=== PATIENT | female | born 1945 | race Hispanic/Latino ===

== ENCOUNTER 2018-01-22 15:04 | Observation (INO) | payer MEDICARE ==
[~2018-01-22] VITALS: Ht 152.4 cm; Wt 81.5 kg
[~2018-01-22 15:04] MED LIST: INSLAN SQ; METF-444 PO; MONT10TA24 PO; OMEP40CA37 PO; SIMV10TA6 PO
[2018-01-22 16:00] LABS: BASOPHILS % (AUTO) 0.8 % (0.0-5.0); EOSINOPHILS % (AUTO) 3.4 % (0.0-8.0); HEMATOCRIT 43.1 % (36-48); LYMPHOCYTES % (AUTO) 21.8 % (21.0-51.0); MEAN CORPUSCULAR HEMOGLOBIN 30.4 pg (27.0-33.0); MEAN CORPUSCULAR HGB CONC 33.4 g/dL (32.0-36.0); MEAN CORPUSCULAR VOLUME 90.9 fL (79-99); MONOCYTES % (AUTO) 5.8 % (3.0-13.0); NEUTROPHILS % (AUTO) 68.2 % (40.0-77.0); PLATELET COUNT (AUTO) 157 K/uL (130-400); RED BLOOD CELL COUNT(AUTO) 4.74 MIL/uL (4.00-5.50); WHITE BLOOD COUNT (AUTO) 9.6 K/uL (4.8-10.8)
[2018-01-22 16:22] LABS: ALBUMIN 4.1 g/dL (3.5-5.0); BILIRUBIN,DIRECT 0.1 mg/dL (0.0-0.3); BILIRUBIN,TOTAL 0.5 mg/dL (0.2-1.0); TOTAL PROTEIN, SERUM 8.3 g/dL (6.0-8.3)
[2018-01-22 16:27] LABS: CREATINE KINASE, TOTAL 204 U/L (21-232); MYOGLOBIN 28 ng/mL (10-92); TROPONIN I < 0.04 ng/mL (0.00-0.06)
[2018-01-22] MEDS ORDERED: GUAIFENESIN-DM 200/20 MG 10 ML PO PRN (16:45)
[2018-01-22] MEDS ORDERED: CLONIDINE HCL 0.1 MG TABLET PO PRN (16:45)
[2018-01-22] MEDS ORDERED: ONDANSETRON HCL 4 MG/2 ML VIAL IVP PRN (16:45)
[2018-01-22] MEDS ORDERED: ZOLPIDEM TARTRATE 5 MG TAB PO PRN (16:45)
[2018-01-22] MEDS ORDERED: SODIUM CHLORIDE 0.9% 10 ML VIAL IVP PRN (16:45)
[2018-01-22] MEDS ORDERED: IPRATROPIUM/ALBUTEROL SULFATE 3 ML SOLUTION IH PRN (16:45)
[2018-01-22 17:10] VITALS: BP 181/94
[2018-01-22 17:27] LABS: CREATININE 0.9 mg/dL (0.5-1.5); POTASSIUM 3.9 mmol/L (3.5-5.1)
[2018-01-22 17:32] LABS: ALBUMIN 3.9 g/dL (3.5-5.0); BILIRUBIN,TOTAL 0.4 mg/dL (0.2-1.0); TOTAL PROTEIN, SERUM 7.6 g/dL (6.0-8.3)
[2018-01-22 17:58] LABS: HEMATOCRIT 41.2 % (36-48); MEAN CORPUSCULAR HEMOGLOBIN 30.6 pg (27.0-33.0); MEAN CORPUSCULAR HGB CONC 33.6 g/dL (32.0-36.0); PLATELET COUNT (AUTO) 145 K/uL (130-400); RED BLOOD CELL COUNT(AUTO) 4.52 MIL/uL (4.00-5.50); WHITE BLOOD COUNT (AUTO) 9.5 K/uL (4.8-10.8)
[2018-01-22 18:12] LABS: ALBUMIN 3.9 g/dL (3.5-5.0); BILIRUBIN,DIRECT 0.1 mg/dL (0.0-0.3); BILIRUBIN,TOTAL 0.4 mg/dL (0.2-1.0); CREATININE 0.9 mg/dL (0.5-1.5); TOTAL PROTEIN, SERUM 7.5 g/dL (6.0-8.3)
[2018-01-22 20:00] VITALS: BP 143/78
[2018-01-22] MEDS: ACETAMINOPHEN 325 MG TAB PO PRN (23:59)
[2018-01-23] VITALS: BP 148/75
[2018-01-23 00:22] LABS: CREATINE KINASE, TOTAL 101 U/L (21-232); MYOGLOBIN 31 ng/mL (10-92); TROPONIN I < 0.04 ng/mL (0.00-0.06)
[2018-01-23 04:00] VITALS: BP 139/71
[2018-01-23] MEDS ORDERED: INSULIN LISPRO 100 UNIT/ML 3ML SQ SCH (07:30)
[2018-01-23 08:00] VITALS: BP 140/72
[2018-01-23 08:12] LABS: CREATINE KINASE, TOTAL 85 U/L (21-232); MYOGLOBIN 28 ng/mL (10-92); TROPONIN I < 0.04 ng/mL (0.00-0.06)
[2018-01-23] MEDS ORDERED: CLOPIDOGREL BISULFATE 75 MG TAB PO SCH (09:00)
[2018-01-23] MEDS ORDERED: REGADENOSON 0.4 MG/5 ML PF SYG IVP SCH (09:00)
[2018-01-23] MEDS ORDERED: ASPIRIN 81 MG EC TAB PO SCH (09:00)
[2018-01-23 11:00] VITALS: BP 142/67
[2018-01-23] MEDS: ACETAMINOPHEN 325 MG TAB PO PRN (11:05)
== END 2018-01-23 16:03 | disposition home or self-care (01) ==
LOC: EDH 15:04 → EDHIP 15:05 → 3CH 17:03
PROVIDERS: ADMIT Internal Medicine; ATTEND Internal Medicine
DX: I24.9 Acute ischemic heart disease, unspecified (principal); E11.9 Type 2 diabetes mellitus without complications; I10 Essential (primary) hypertension; Z90.710 Acquired absence of both cervix and uterus
CPT/HCPCS: 36415 ×2; 78452; 80053; 80076 ×2; 82550 ×3; 82948 ×3; 83874 ×3; 84484 ×3; 85025; 85027; 93017; 94664; 99285; A9500 ×2; G0378 ×25; J2785; 80048; 96374

== ENCOUNTER → 2018-09-28 | Outpatient (CLI) | payer MEDICARE | END | disposition home or self-care (01) | LOC: RAH 14:34 | PROVIDERS: ATTEND Orthopaedic Surgery | DX: S83.281A Other tear of lateral meniscus, current injury, right knee, initial encounter (principal); M17.11 Unilateral primary osteoarthritis, right knee; M25.761 Osteophyte, right knee; M25.461 Effusion, right knee; M94.261 Chondromalacia, right knee; X58.XXXA Exposure to other specified factors, initial encounter; Y93.89 Activity, other specified; Y92.89 Other specified places as the place of occurrence of the external cause; Y99.8 Other external cause status | CPT/HCPCS: 73721 ==

== ENCOUNTER 2018-12-17 10:00 | Inpatient (IN) | payer MEDICARE ==
[~2018-12-17] VITALS: Ht 152.4 cm; Wt 84.6 kg
[~2018-12-17 10:00] MED LIST changes: -INSLAN SQ; -METF-444 PO; -MONT10TA24 PO; +OMEP40CA13 PO; -OMEP40CA37 PO; -SIMV10TA6 PO; +SIMV10TA97 PO
[2019-01-14 12:24] LABS: APPEARANCE,URINE Clear (CLEAR); BILIRUBIN,URINE Negative (NEGATIVE); COLOR,URINE Yellow (YELLOW); GLUCOSE, URINE (UA) TRACE mg/dL (NEGATIVE); KETONES,URINE Negative (NEGATIVE); LEUKOCYTE ESTERASE ,URINE Small (NEGATIVE); NITRATE,URINE Negative (NEGATIVE); OCCULT BLOOD,URINE Negative (NEGATIVE); PROTEIN,URINE POS 2+ mg/dL (NEGATIVE)
[2019-01-14 12:40] LABS: BACTERIA,URINE Few /HPF (None Seen); RBC,URINE 0-1 /HPF (0-1); SQUAMOUS EPITHELIAL CELL,UR Few /HPF (0-2)
[2019-01-14 14:18] VITALS: BP 132/74
[2019-01-14] MEDS ORDERED: AA8/1CAP3 PO (14:40)
[2019-01-14] MEDS ORDERED: SERT50TA12 PO (14:40)
[2019-01-14] MEDS ORDERED: ACET1TAB25 PO (14:40)
[2019-01-14] MEDS ORDERED: OLME20TA22 PO (14:40)
[2019-01-14] MEDS ORDERED: INSLAN SQ (14:41)
--- NOTE | 2019-01-14 18:04 | NUR ---
UA INFORMED DR. RYAN OF ABNORMAL UA. ORDERS RECEIVED TO GIVE GENTAMICIN 240MG IV ON AM OF ARRIVAL AND SEND URINE FOR CULTURE.
[2019-01-17] VITALS (26 sets, daily range): BP systolic 86–125; BP diastolic 48–64
[2019-01-17] MEDS: CEFAZOLIN SODIUM 1 GM VIAL IVP SCH ×3 (06:00→18:34)
[2019-01-17] MEDS ORDERED: GENTAMICIN SULFATE 240 MG in SODIUM CHLORIDE 0.9% 100 ML IV SCH (07:30)
[2019-01-17] MEDS ORDERED: SODIUM CHLORIDE 0.9% 1000ML 1,000 ML IV ONE (08:03)
[2019-01-17] MEDS ORDERED: ACETAMINOPHEN EXTRA STRENGTH 500 MG TABLET ONE (08:28)
[2019-01-17] MEDS ORDERED: OXYCODONE HCL 10 MG TAB.SR.12H PO ONE (08:29)
[2019-01-17] MEDS ORDERED: CELECOXIB 200 MG CAP ONE (08:29)
[2019-01-17] MEDS ORDERED: GABA-531 PO (08:44)
[2019-01-17] MEDS ORDERED: ACET1TAB12 PO (08:45)
[2019-01-17] MEDS ORDERED: CEFAZOLIN SODIUM 1 GM VIAL ONE (08:53)
[2019-01-17] MEDS ORDERED: LIDOCAINE PF 2% 5ML ABBOJECT ONE (10:07)
[2019-01-17] MEDS ORDERED: ONDANSETRON HCL 4 MG/2 ML VIAL ONE (10:07)
[2019-01-17] MEDS ORDERED: ROCURONIUM 10MG/1ML SYR 10 MG/ML ML ONE ×2 (10:08→11:52)
[2019-01-17] MEDS ORDERED: PROPOFOL 10 MG/ML 20ML VIAL IV ONE (10:08)
[2019-01-17] MEDS ORDERED: FENTANYL CITRATE PF 50 MCG/1 ML 2ML VIAL ONE (10:08)
[2019-01-17] MEDS ORDERED: MIDAZOLAM HCL 1 MG/ML 2ML VIAL ONE (10:12)
[2019-01-17] MEDS ORDERED: KETAMINE 50MG/ML SYRINGE 50 MG/ML DISP.SYRIN IV ONE (10:14)
[2019-01-17] MEDS ORDERED: ROPIVACAINE 0.5% 5MG/ML 30ML IJ ONE (10:14)
[2019-01-17] MEDS ORDERED: DEXAMETHASONE SOD PHOSPHATE 10MG/ML 1ML VIAL ONE (10:15)
[2019-01-17] MEDS: TRANEXAMIC ACID 1000MG/10ML IV ONE ×2 (11:10→13:55)
[2019-01-17] MEDS ORDERED: TEMAZEPAM 15 MG CAPSULE PO PRN (13:30)
[2019-01-17] MEDS: SODIUM CHLORIDE 0.9% 1000ML 1,000 ML IV SCH ×2 (13:30→23:49)
[2019-01-17] MEDS ORDERED: FERROUS FUMARATE 324 MG TABLET PO PRN (13:30)
[2019-01-17] MEDS: ACETAMINOPHEN EXTRA STRENGTH 500 MG TABLET PO SCH ×2 (13:30→20:29)
[2019-01-17] MEDS ORDERED: DiphenhydrAMINE HCL 50 MG/ML VIAL IVP PRN (13:30)
[2019-01-17] MEDS ORDERED: ONDANSETRON HCL 4 MG/2 ML VIAL IVP PRN (13:30)
[2019-01-17] MEDS ORDERED: KETOROLAC TROMETHAMINE 15MG/ML IV PRN (13:30)
[2019-01-17] MEDS ORDERED: TRAMADOL HCL 50 MG TABLET PO PRN (13:30)
[2019-01-17] MEDS ORDERED: IPRATROPIUM/ALBUTEROL SULFATE 3 ML SOLUTION IH ONE ×2 (13:56→14:38)
[2019-01-17] MEDS: INSULIN HUMULIN R 100 UNIT/ML 3ML SQ SCH ×2 (16:30→21:00)
[2019-01-17] MEDS: OXYCODONE HCL 5 MG TAB PO PRN ×2 (16:35→20:23)
[2019-01-17] MEDS: CELECOXIB 200 MG CAP PO SCH (20:29)
[2019-01-17] MEDS: ASPIRIN 81MG TAB.CHEW PO SCH (20:29)
[2019-01-17] MEDS: INSULIN GLARGINE 100 UNITS/ML 10 ML VIAL SQ SCH (21:45)
[2019-01-17] MEDS: GABAPENTIN 300 MG CAPSULE PO SCH (21:46)
--- NOTE | 2019-01-17 23:29 | NUR ---
LOW BLOOD PRESSURE PATIENT BLOOD PRESSURE AT 86/50. DR RYAN INFORMED OF PATIENT STATUS ORDERS FOR NS BOLUS AND AM LABS GIVEN AND CARRIED OUT.
[2019-01-17] MEDS ORDERED: SODIUM CHLORIDE 0.9% 500ML 500 ML IV SCH (23:30)
[2019-01-18] VITALS: BP 94/50
[2019-01-18] MEDS: OXYCODONE HCL 5 MG TAB PO PRN ×3 (01:28→19:50)
[2019-01-18] MEDS: CEFAZOLIN SODIUM 1 GM VIAL IVP SCH (03:09)
[2019-01-18 04:03] VITALS: BP 92/56
[2019-01-18] MEDS: ACETAMINOPHEN EXTRA STRENGTH 500 MG TABLET PO SCH ×3 (04:55→19:50)
[2019-01-18 05:11] LABS: HEMATOCRIT 32.8 % (36-48); MEAN CORPUSCULAR HEMOGLOBIN 31.4 pg (27.0-33.0); MEAN CORPUSCULAR HGB CONC 33.8 g/dL (32.0-36.0); MEAN CORPUSCULAR VOLUME 92.8 fL (79-99); PLATELET COUNT (AUTO) 150 K/uL (130-400); RED BLOOD CELL COUNT(AUTO) 3.54 MIL/uL (4.00-5.50); RED CELL DISTRIBUTION WIDTH 13.4 % (11.0-15.5); WHITE BLOOD COUNT (AUTO) 9.8 K/uL (4.8-10.8)
[2019-01-18] MEDS: INSULIN HUMULIN R 100 UNIT/ML 3ML SQ SCH ×4 (05:33→21:20)
[2019-01-18 08:40] VITALS: BP 105/54
[2019-01-18] MEDS: LOSARTAN 100 MG TABLET PO SCH (09:00)
--- NOTE | 2019-01-18 09:00 | NUR ---
INITIAL AND REFERRAL MET W PT S/P KAMILAH, ANNA CARDONA REFERRAL LIVES W SON, SON WORKS ALL DAY; WAS PREVIOUSLY INDP, NO DME, HOME SAFE AND ACCESSIBLE; HAS RAMP; PROVIDER SERVICE THROUGH [facility] 20+ HR/WK VU SIGNED FOR ANNA CARDONA AND SHAYNA, WILL NEED WKR ON DC FOMR ANNA CARDONA Addendum: 01/19/19 at 1849 by SIXTO GONZALES RN CM Amended: Links added.
[2019-01-18] MEDS: POLYETHYLENE GLYCOL 3350 17 GM POWD.PACK PO SCH (09:23)
[2019-01-18] MEDS: SODIUM CHLORIDE 0.9% 1000ML 1,000 ML IV SCH (09:24)
[2019-01-18] MEDS: FAMOTIDINE 20MG TAB 20 MG TAB PO SCH (09:24)
[2019-01-18] MEDS: ASPIRIN 81MG TAB.CHEW PO SCH ×2 (09:24→19:50)
[2019-01-18] MEDS: NITROFURANTOIN MONOHYD/M-CRYST 100 MG CAPSULE PO SCH ×2 (09:24→19:50)
[2019-01-18] MEDS: SERTRALINE HCL 50 MG TABLET PO SCH (09:24)
[2019-01-18] MEDS: CELECOXIB 200 MG CAP PO SCH ×2 (09:24→19:50)
[2019-01-18] MEDS: INSULIN GLARGINE 100 UNITS/ML 10 ML VIAL SQ SCH ×2 (09:37→21:19)
[2019-01-18 11:35] VITALS: BP 108/56
[2019-01-18 16:04] VITALS: BP 116/60
[2019-01-18] MEDS ORDERED: ASPI-1005 PO (17:52)
[2019-01-18] MEDS ORDERED: NITR100C4 PO (17:52)
[2019-01-18] MEDS ORDERED: HYDR-4457 PO (17:52)
[2019-01-18] MEDS: GABAPENTIN 300 MG CAPSULE PO SCH (19:50)
[2019-01-18 20:03] VITALS: BP 105/57
[2019-01-19 00:03] VITALS: BP 103/59
[2019-01-19] MEDS: OXYCODONE HCL 5 MG TAB PO PRN ×2 (00:54→04:45)
[2019-01-19 04:03] VITALS: BP 97/54
[2019-01-19] MEDS: ACETAMINOPHEN EXTRA STRENGTH 500 MG TABLET PO SCH ×3 (05:13→20:48)
[2019-01-19] MEDS: INSULIN HUMULIN R 100 UNIT/ML 3ML SQ SCH ×4 (06:07→21:00)
[2019-01-19 08:04] VITALS: BP 115/62
--- NOTE | 2019-01-19 09:00 | NUR ---
[facility] Addendum: 01/19/19 at 1852 by SIXTO GONZALES RN CM Amended: Links added.
[2019-01-19] MEDS: INSULIN GLARGINE 100 UNITS/ML 10 ML VIAL SQ SCH ×2 (11:16→21:06)
[2019-01-19] MEDS: NITROFURANTOIN MONOHYD/M-CRYST 100 MG CAPSULE PO SCH ×2 (11:20→20:47)
[2019-01-19] MEDS: CELECOXIB 200 MG CAP PO SCH ×2 (11:20→20:47)
[2019-01-19] MEDS: SERTRALINE HCL 50 MG TABLET PO SCH (11:21)
[2019-01-19] MEDS: LOSARTAN 100 MG TABLET PO SCH (11:21)
[2019-01-19] MEDS: POLYETHYLENE GLYCOL 3350 17 GM POWD.PACK PO SCH (11:22)
[2019-01-19] MEDS: ASPIRIN 81MG TAB.CHEW PO SCH (11:22)
[2019-01-19] MEDS: FAMOTIDINE 20MG TAB 20 MG TAB PO SCH (11:24)
[2019-01-19 11:27] VITALS: BP 115/72
[2019-01-19 16:03] VITALS: BP 129/57
--- NOTE | 2019-01-19 18:15 | NUR ---
PATIENT S/S PATIENT REPORTS FEELING SHORT OF BREATH WHEN WALKING FROM THE BATHROOM. OXYGEN SATURATION NOTED TO BE 85% ON ROOM AIR. INSTRUCTED PATIENT TO TAKE DEEP BREATHS, PLACED PATIENT ON 02 AT 2L PER NASAL CANNULA. OXYGEN SATURATION DID IMPROVE TO 94% ON 02 AT 2L PER NC. BILATERAL LUNG SOUNDS CLEAR TO AUSCULTATION, NO CHEST PAIN REPORTED. PATIENT DOES REPORT USING INCENTIVE SPIROMETER EXERCISES EVERY HOUR. CALLED DR. RYAN TO REPORT FINDINGS THESE LOW OXYGEN SATURATIONS APPEAR TO BE A NEW FINDING.
[2019-01-19 19:36] LABS: CREATININE 1.5 mg/dL (0.5-1.5); POTASSIUM 4.4 mmol/L (3.5-5.1)
[2019-01-19 20:00] VITALS: BP 119/64
[2019-01-19] MEDS: APIXABAN 2.5 MG TABLET PO SCH (20:47)
[2019-01-19] MEDS: GABAPENTIN 300 MG CAPSULE PO SCH (20:48)
[2019-01-20] VITALS: BP_SYST 107; BP_SYST 136; BP_DIAS 52; BP_DIAS 60
[2019-01-20 04:00] VITALS: BP 107/52
[2019-01-20] MEDS: ACETAMINOPHEN EXTRA STRENGTH 500 MG TABLET PO SCH ×3 (05:38→20:09)
[2019-01-20] MEDS: INSULIN HUMULIN R 100 UNIT/ML 3ML SQ SCH ×4 (07:30→20:15)
[2019-01-20 08:05] VITALS: BP 95/58
[2019-01-20] MEDS: IPRATROPIUM/ALBUTEROL SULFATE 3 ML SOLUTION IH SCH ×4 (08:49→23:40)
[2019-01-20] MEDS: INSULIN GLARGINE 100 UNITS/ML 10 ML VIAL SQ SCH ×2 (09:55→20:14)
[2019-01-20] MEDS: OXYCODONE HCL 5 MG TAB PO PRN (10:03)
[2019-01-20] MEDS: POLYETHYLENE GLYCOL 3350 17 GM POWD.PACK PO SCH (10:04)
[2019-01-20] MEDS: CELECOXIB 200 MG CAP PO SCH ×2 (10:05→20:08)
[2019-01-20] MEDS: FAMOTIDINE 20MG TAB 20 MG TAB PO SCH (10:05)
[2019-01-20] MEDS: SERTRALINE HCL 50 MG TABLET PO SCH (10:05)
[2019-01-20] MEDS: LOSARTAN 100 MG TABLET PO SCH (10:05)
[2019-01-20] MEDS: NITROFURANTOIN MONOHYD/M-CRYST 100 MG CAPSULE PO SCH ×2 (10:05→20:08)
[2019-01-20] MEDS: APIXABAN 2.5 MG TABLET PO SCH ×2 (10:05→20:08)
[2019-01-20 11:00] VITALS: BP 114/63
--- NOTE | 2019-01-20 12:05 | NUR ---
ELEVATED BLOOD GLUCOSE OBTAINED FINGERSTICK BLOOD GLUCOSE RESULT 420, ORDERED STAT LAB RECHECK. ADMINISTERED 16 UNITS PER SLIDING SCALE PROTOCOL. SPOKE TO PATIENT REGARDING DIABETIC DIET COMPLIANCE IN HOSPITAL BECAUSE I SAW A SOFT DRINK AT PATIENT BEDSIDE. PATIENT STATES "I HAVE NOT DRANK THAT, IT HAS BEEN THERE SINCE LAST NIGHT." I EDUCATED PATIENT ON IMPORTANCE OF MAINTAINING DIABETIC DIET AND PATIENT TOLD ME SHE HAS NOT BEEN EATING ANY OUTSIDE SNACKS OR FOOD. LAB GLUCOSE RESULT WAS 450. CALLED DR. RYAN TO REPORT BLOOD GLUCOSE SUGAR RESULTS AND INTERVENTIONS. MD ORDERED TO PLACE PATIENT ON SLIDING SCALE 2 AND TO GIVE 4 UNITS REGULAR INSULIN NOW TO EQUAL TOTAL DOSE OF REGULAR INSULIN 20 UNITS SQ. WILL CONTINUE TO MONITOR.
[2019-01-20] MEDS ORDERED: GLUCAGON 1MG KIT 1 MG ML IM PRN (12:15)
[2019-01-20] MEDS ORDERED: DEXTROSE 50%-WATER 50 ML DISP.SYRIN IV PRN (12:15)
[2019-01-20] MEDS ORDERED: INSULIN HUMULIN R 100 UNIT/ML 3ML SQ SCH (12:15)
[2019-01-20] MEDS ORDERED: INSULIN HUMULIN R 100 UNIT/ML 3ML ONE (12:16)
[2019-01-20] MEDS ORDERED: BISACODYL 10 MG SUPP.RECT RC PRN (13:30)
[2019-01-20 16:00] VITALS: BP 129/61
[2019-01-20 20:00] VITALS: BP 140/75
[2019-01-20] MEDS: GABAPENTIN 300 MG CAPSULE PO SCH (20:08)
[2019-01-21] VITALS: BP 123/65
[2019-01-21 04:00] VITALS: BP 123/68
[2019-01-21] MEDS: ACETAMINOPHEN EXTRA STRENGTH 500 MG TABLET PO SCH ×2 (06:09→12:43)
[2019-01-21] MEDS: IPRATROPIUM/ALBUTEROL SULFATE 3 ML SOLUTION IH SCH ×2 (06:32→11:39)
[2019-01-21] MEDS: INSULIN HUMULIN R 100 UNIT/ML 3ML SQ SCH ×2 (07:30→12:44)
[2019-01-21 08:00] VITALS: BP 120/71
[2019-01-21] MEDS: INSULIN GLARGINE 100 UNITS/ML 10 ML VIAL SQ SCH (08:27)
[2019-01-21] MEDS: OXYCODONE HCL 5 MG TAB PO PRN (08:31)
[2019-01-21] MEDS: POLYETHYLENE GLYCOL 3350 17 GM POWD.PACK PO SCH (08:32)
[2019-01-21] MEDS: SERTRALINE HCL 50 MG TABLET PO SCH (08:33)
[2019-01-21] MEDS: FAMOTIDINE 20MG TAB 20 MG TAB PO SCH (08:33)
[2019-01-21] MEDS: NITROFURANTOIN MONOHYD/M-CRYST 100 MG CAPSULE PO SCH (08:33)
[2019-01-21] MEDS: CELECOXIB 200 MG CAP PO SCH (08:33)
[2019-01-21] MEDS: APIXABAN 2.5 MG TABLET PO SCH (08:33)
[2019-01-21] MEDS: LOSARTAN 100 MG TABLET PO SCH (08:33)
--- NOTE | 2019-01-21 10:00 | NUR ---
LATE DISCHARGE LBM ON 01/16/19. SUPPOSITORY GIVEN PER DR. RYAN ORDERS. MIRALAX AND PRUNE JUICE GIVEN WELL. BOWEL SOUNDS AUSCULTATED ON ALL QUADRANTS, PATIENT REPORTS PASSING GAS. DR. RYAN MADE AWARE, PENDING BM PRIOR TO TRANSFER.
[2019-01-21 11:49] VITALS: BP 128/69
--- NOTE | 2019-01-21 14:07 | NUR ---
RD NOTIFICATION DX: OSTEOARTHRITIS OF RIGHT KNEE. HX: DM, HTN. DIET: 60GMCCD. PO INTAKE 100% AND HAS GOOD APPETITE PER PT. PT CLAIMS TO BE COMPLIANT WITH DIABETIC DIET AND MEDICATIONS. PT IS TOLERATING DIET WELL. NO NAUSEA, VOMITING OR DIARRHEA. PT STATED SHE HAS NOT HAD A BM SINCE THURSDAY, AND HAS A HISTORY OF CONSTIPATION. RD PROVIDED DIABETES DIET AND NUTRITION EDUCATION. MATERIAL PROVIDED. PT VERBALIZED UNDERSTANDING. RD RECOMMENDS CONTINUE CURRENT DIET. RD PROVIDED DIABETES DIET AND NUTRITION EDUCATION. RD WILL CONTINUE TO MONITOR AND FOLLOW UP NEEDED. THANK YOU. Addendum: 01/21/19 at [address] Amended: Links added.
--- NOTE | 2019-01-21 14:08 | NUR ---
DIET EDUCATION AYAAN PROVIDED DIABETES DIET AND NUTRITION EDUCATION. MATERIAL PROVIDED. PT VERBALIZED UNDERSTANDING. Addendum: 01/21/19 at [address] Amended: Links added.
--- NOTE | 2019-01-21 16:50 | NUR ---
DISCHARGE DISCHARGE TEACHING DONE WITH PATIENT USING TEACHBACK METHOD, VERBALIZED UNDERSTANDING. NO NOTED SOB OR DISTRESS. PT AWARE OF NEED TO ATTEND DR. RYAN APPOINTMENT. INCISION CARE TEACHING DONE WITH PATIENT USING TEACHBACK METHOD, VERBALIZED UNDERSTANDING. DRESSING TO RIGHT KNEE CHANGED PER DR. RYAN ORDERS, INCISION IS DRY AND INTACT, GAUZE AND TAPE SECURING INCISION. NEW MEDICATION ADMINISTRATION TEACHING DONE WITH PATIENT, VERBALIZED UNDERSTANDING. IV REMOVED, CATH TIP INTACT. REPORT CALLED TO ANNA CARDONA TELEVISION REPAIRER AT BEDSIDE TO TRANSFER PATIENT.
== END 2019-01-21 17:14 | DRG 470 ==
LOC: DAHIP 01-17 07:08 → 4AH 01-17 13:36
PROVIDERS: ADMIT Orthopaedic Surgery; ATTEND Orthopaedic Surgery
PROC: 0SRC0J9 Replacement of Right Knee Joint with Synthetic Substitute, Cemented, Open Approach (ICD-10-PCS; principal; 2019-01-17 10:55)
PROC: 3E0T3BZ Introduction of Anesthetic Agent into Peripheral Nerves and Plexi, Percutaneous Approach (ICD-10-PCS; 2019-01-17 10:55)
DX: M17.11 Unilateral primary osteoarthritis, right knee (principal); J98.11 Atelectasis; E11.9 Type 2 diabetes mellitus without complications; I10 Essential (primary) hypertension; E78.5 Hyperlipidemia, unspecified; E78.00 Pure hypercholesterolemia, unspecified; M06.9 Rheumatoid arthritis, unspecified; M23.91 Unspecified internal derangement of right knee; G89.29 Other chronic pain; Z79.4 Long term (current) use of insulin; Z87.891 Personal history of nicotine dependence; Z90.710 Acquired absence of both cervix and uterus
CPT/HCPCS: 36415; 71250; 80048; 81001; 82947; 82948; 85027; 85378; 87077; 87088; 87186; 87641; 88304; 88311; 93005; 93970; 94640; 96365; 97039; G0378; J0690; J1100; J1580; J1815; J1885; J2001; J2250; J2405; J2704; J2795; J3010; J3490; J7030; J7040

== ENCOUNTER 2019-04-25 12:55 | Emergency (ER) | payer MEDICARE ==
[~2019-04-25 12:55] MED LIST changes: +ASPI-1005 PO; +GABA-531 PO; +INSLAN SQ; +NITR100C4 PO; +OLME20TA22 PO; -OMEP40CA13 PO; +SERT50TA12 PO; -SIMV10TA97 PO
[2019-04-25] MEDS ORDERED: CYCLOBENZAPRINE HCL 10 MG TABLET ONE (14:32)
[2019-04-25] MEDS ORDERED: LIDOCAINE 5% TOPICAL PATCH TP ONE (14:32)
[2019-04-25] MEDS ORDERED: KETOROLAC TROMETHAMINE 30MG/ML ONE (14:32)
== END 2019-04-25 15:57 | disposition home or self-care (01) ==
LOC: EDH 12:55
DX: M54.41 Lumbago with sciatica, right side (principal); R50.9 Fever, unspecified; E11.9 Type 2 diabetes mellitus without complications; I10 Essential (primary) hypertension; Z87.891 Personal history of nicotine dependence
CPT/HCPCS: 96372; 99283; J1885

== ENCOUNTER 2020-02-01 09:35 | Emergency (ER) | payer MEDICARE ==
[2020-02-01] MEDS ORDERED: SODIUM CHLORIDE 0.9% 1000ML 1,000 ML IV ONE (09:36)
[2020-02-01] MEDS ORDERED: IBUPROFEN 600 MG TABLET ONE (10:32)
[2020-02-01 10:57] LABS: CREATININE 1.3 mg/dL (0.5-1.5); POTASSIUM 4.9 mmol/L (3.5-5.1)
[2020-02-01] MEDS ORDERED: INSULIN HUMULIN R 100 UNIT/ML 3ML ONE (11:38)
== END 2020-02-01 12:38 | disposition home or self-care (01) ==
LOC: EDH 09:35
DX: R51.9 Headache, unspecified (principal); E08.65 Diabetes mellitus due to underlying condition with hyperglycemia; I10 Essential (primary) hypertension; E78.00 Pure hypercholesterolemia, unspecified
CPT/HCPCS: 36415; 80048; 82948; 96361; 96374; 99283; J1815; J7030

== ENCOUNTER 2020-08-19 13:43 | Emergency (ER) | payer MEDICARE ==
[~2020-08-19 13:43] MED LIST changes: +SERT-439 PO; -SERT50TA12 PO
[2020-08-19 14:23] LABS: APPEARANCE,URINE Clear (CLEAR); BILIRUBIN,URINE Negative (NEGATIVE); COLOR,URINE Yellow (YELLOW); GLUCOSE, URINE (UA) Negative (NEGATIVE); KETONES,URINE Trace mg/dL (NEGATIVE); LEUKOCYTE ESTERASE ,URINE Small (NEGATIVE); NITRATE,URINE Negative (NEGATIVE); OCCULT BLOOD,URINE Negative (NEGATIVE); PROTEIN,URINE POS 1+ mg/dL (NEGATIVE)
[2020-08-19 14:29] LABS: BASOPHILS % (AUTO) 0.8 % (0.0-5.0); EOSINOPHILS % (AUTO) 4.9 % (0.0-8.0); HEMATOCRIT 43.2 % (36-48); LYMPHOCYTES % (AUTO) 26.4 % (21.0-51.0); MEAN CORPUSCULAR HEMOGLOBIN 29.2 pg (27.0-33.0); MEAN CORPUSCULAR HGB CONC 32.4 g/dL (32.0-36.0); MONOCYTES % (AUTO) 6.3 % (3.0-13.0); NEUTROPHILS % (AUTO) 61.1 % (40.0-77.0); PLATELET COUNT (AUTO) 188 K/uL (130-400); RED CELL DISTRIBUTION WIDTH 12.8 % (11.0-15.5); WHITE BLOOD COUNT (AUTO) 8.8 K/uL (4.8-10.8)
[2020-08-19 14:40] LABS: ABG BASE EXCESS -9.9 mmol/L (-2.0-3.0); ABG HCO3 16.4 mmol/L (21.0-28.0); ABG OXYGEN SATURATION 89.8 % (95.0-99.0); ABG PCO2 38 mmHg (32-45)
[2020-08-19 14:48] LABS: CREATININE 1.6 mg/dL (0.5-1.5); POTASSIUM 5.4 mmol/L (3.5-5.1)
[2020-08-19 14:49] LABS: INR 0.95 (0.85-1.15); PROTHROMBIN TIME 10.4 SEC (9.6-11.6)
[2020-08-19 14:50] LABS: BACTERIA,URINE Rare /HPF (None Seen); RBC,URINE 0-1 /HPF (0-1); SQUAMOUS EPITHELIAL CELL,UR Few /HPF (0-2)
[2020-08-19 14:51] LABS: PARTIAL THROMBOPLASTIN TIME 25.6 SEC (26.3-35.5)
[2020-08-19 14:53] LABS: ALBUMIN 3.9 g/dL (3.5-5.0); BILIRUBIN,TOTAL 0.3 mg/dL (0.2-1.0); TOTAL PROTEIN, SERUM 7.8 g/dL (6.0-8.3)
[2020-08-19] MEDS ORDERED: CEFTRIAXONE SODIUM 1 GM ONE (15:30)
[2020-08-19] MEDS ORDERED: SODIUM CHLORIDE 0.9% 100 ML IV ONE (15:31)
[2020-08-19] MEDS ORDERED: SODIUM CHLORIDE 0.9% 500ML 500 ML IV ONE (15:31)
== END 2020-08-19 20:03 | disposition home or self-care (01) ==
LOC: EDH 13:43
DX: J20.9 Acute bronchitis, unspecified (principal); E11.9 Type 2 diabetes mellitus without complications; E78.00 Pure hypercholesterolemia, unspecified; I10 Essential (primary) hypertension
CPT/HCPCS: 36415; 36600; 71045; 80053; 81001; 82803; 84484; 85025; 85610; 85730; 96365; 96366; 99284; J0696; J7040

== ENCOUNTER 2021-03-16 11:09 | Emergency (ER) | payer MEDICARE ==
[~2021-03-16] VITALS: Ht 152.4 cm; Wt 88.0 kg
[2021-03-16 11:45] LABS: APPEARANCE,URINE Clear (CLEAR); BILIRUBIN,URINE Negative (NEGATIVE); COLOR,URINE Yellow (YELLOW); GLUCOSE, URINE (UA) Negative (NEGATIVE); KETONES,URINE Negative (NEGATIVE); LEUKOCYTE ESTERASE ,URINE Small (NEGATIVE); NITRATE,URINE Negative (NEGATIVE); OCCULT BLOOD,URINE Negative (NEGATIVE); PH,URINE 5.5 (5.0-8.0); PROTEIN,URINE POS 2+ mg/dL (NEGATIVE)
[2021-03-16 11:50] LABS: BACTERIA,URINE Rare /HPF (None Seen); RBC,URINE 0-1 /HPF (0-1); SQUAMOUS EPITHELIAL CELL,UR Few /HPF (0-2); WBC,URINE 0-1 /HPF (0-1)
[2021-03-16 11:59] LABS: BASOPHILS % (AUTO) 0.3 % (0.0-5.0); EOSINOPHILS % (AUTO) 0.3 % (0.0-8.0); HEMATOCRIT 40.6 % (36-48); LYMPHOCYTES % (AUTO) 7.4 % (21.0-51.0); MEAN CORPUSCULAR HEMOGLOBIN 28.9 pg (27.0-33.0); MEAN CORPUSCULAR HGB CONC 32.5 g/dL (32.0-36.0); MONOCYTES % (AUTO) 3.3 % (3.0-13.0); NEUTROPHILS % (AUTO) 88.4 % (40.0-77.0); PLATELET COUNT (AUTO) 176 K/uL (130-400); RED BLOOD CELL COUNT(AUTO) 4.56 MIL/uL (4.00-5.50); RED CELL DISTRIBUTION WIDTH 12.3 % (11.0-15.5); WHITE BLOOD COUNT (AUTO) 8.7 K/uL (4.8-10.8)
[2021-03-16 12:12] LABS: CREATININE 1.3 mg/dL (0.5-1.5); POTASSIUM 4.1 mmol/L (3.5-5.1)
[2021-03-16 12:17] LABS: ALBUMIN 4.1 g/dL (3.5-5.0); BILIRUBIN,TOTAL 0.6 mg/dL (0.2-1.0)
[2021-03-16] MEDS ORDERED: 0.9%NACL 1000ML 1,000 ML IV ONE (13:00)
[2021-03-16] MEDS ORDERED: ONDANSETRON 4MG INJ IVP ONE (13:00)
[2021-03-16] MEDS ORDERED: ONDA4TAB10 PO (15:53)
[2021-03-16] MEDS ORDERED: CEPH500B PO (15:53)
[2021-03-16] MEDS ORDERED: OMEP10CA5 PO (15:53)
[2021-03-16] MEDS ORDERED: CEFTRIAXONE 1G VIAL IVP ONE (16:00)
[2021-03-16 16:32] VITALS: BP 126/62
== END 2021-03-16 16:36 | disposition home or self-care (01) ==
LOC: EDH 11:15
DX: E86.0 Dehydration (principal); L03.115 Cellulitis of right lower limb; R11.2 Nausea with vomiting, unspecified; E11.9 Type 2 diabetes mellitus without complications; E78.00 Pure hypercholesterolemia, unspecified; I11.9 Hypertensive heart disease without heart failure; Z79.4 Long term (current) use of insulin; Z79.82 Long term (current) use of aspirin; Z79.899 Other long term (current) drug therapy
CPT/HCPCS: 36415; 71045; 80053; 81001; 82550; 83690; 84484; 85025; 93005; 96361; 96374; 96375; 99285; J0696; J2405; J7030

== ENCOUNTER 2021-03-20 04:12 | Emergency (ER) | payer MEDICARE ==
[~2021-03-20] VITALS: Ht 152.4 cm; Wt 88.0 kg
[~2021-03-20 04:12] MED LIST changes: +CEPH500B PO; +OMEP10CA5 PO; +ONDA4TAB10 PO
[2021-03-20 04:35] VITALS: BP 104/52
[2021-03-20] MEDS ORDERED: LACTULOSE 20 GM/30 ML UDCUP PO ONE (05:00)
[2021-03-20] MEDS ORDERED: LACT10SO5 PO (05:30)
== END 2021-03-20 06:27 | disposition home or self-care (01) ==
LOC: EDH 04:12
DX: K59.00 Constipation, unspecified (principal); E11.9 Type 2 diabetes mellitus without complications; E78.00 Pure hypercholesterolemia, unspecified; I10 Essential (primary) hypertension; Z79.4 Long term (current) use of insulin; Z79.82 Long term (current) use of aspirin; Z79.899 Other long term (current) drug therapy

== ENCOUNTER → 2021-09-20 | Outpatient (CLI) | payer MEDICARE ==
[~2021-09-20] MED LIST changes: -ASPI-1005 PO; +ATOR20TA65 PO; -CEPH500B PO; +DOCU100C33 PO; -GABA-531 PO; +GABA300C PO; -INSLAN SQ; +IOHEXOL-350 50ML VIAL IV ONE; +METOPROLOL TARTRATE 1 MG/ML 5ML VIAL IV ONE; +MONT-39 PO; -NITR100C4 PO; -OLME20TA22 PO; -OMEP10CA5 PO; -ONDA4TAB10 PO; +QUER1POW MC; +SUCR1TAB2 PO; +TRAM50TA4 PO; +VITA1TAB22 PO
== END | disposition home or self-care (01) ==
LOC: RAH 08:24
PROVIDERS: ATTEND Internal Medicine Cardiovascular Disease
DX: R06.02 Shortness of breath (principal)
CPT/HCPCS: 75574; J3490 ×2; Q9967